=== PATIENT | female | born 1930 | race Caucasian/White ===

== ENCOUNTER → 2017-11-10 | Outpatient (CLI) | payer MEDICARE, BC, MEDICAID ==
[~2017-11-10] MED LIST: ADULT LOW DOSE81 MG PO; AMBIEN 5 MG TABL5 M1 PO; CELEXA 20 MG TA20 M1 PO; DONEPEZIL HCL10 MG PO; FOSAMAX 70 MG T70 M1 PO; LOPERAMIDE 2 MG2 M1 PO; MUCINEX TA600 MG/TA1 PO; NAMENDA 10 MG T10 MG PO; OXYBUTYNIN 5 MG5 M2 PO; OYSTER SHELL C1 EA14 PO; PAIN & FEVER325 MG PO; SIMVASTATIN20 MG PO; TRAMADOL 50 MG50 MG PO
== END ==
LOC: M.CT 10:31
DX: M47.892 Other spondylosis, cervical region (principal); G31.9 Degenerative disease of nervous system, unspecified; E11.9 Type 2 diabetes mellitus without complications